=== PATIENT | female | born 1975 | race Caucasian/White ===

== ENCOUNTER 2021-06-05 12:58 | Inpatient (IN) | payer SELFPAY ==
--- NOTE | 2021-06-05 17:46 | Emergency Department Report ---
- General Chief Complaint: Fever Stated Complaint: COUGHING Time Seen by Provider: 06/05/21 17:43 Source: patient Mode of arrival: Ambulatory Limitations: No Limitations - History of Present Illness Initial Comments: The patient was evaluated in the emergency department for symptoms described in the history of present illness. He/she was evaluated in the context of the global COVID-19 pandemic, which necessitated consideration that the patient might be at risk for infection with the virus that causes COVID-19. Institutional protocols and algorithms that pertain to the evaluation of patients at risk for COVID-19 are in a state of rapid change based on information released by regulatory bodies including the CDC and federal and state organizations. These policies and algorithms were followed during the patient's care in the emergency department. Please note that these policies, procedures and recommendations changed on a rapid basis. 45-year-old female presents to the emergency room for 2-week history of fever cough sore throat nasal congestion. She states that the pain is worse in her back when she takes a deep breath. She denies any ear pain no nausea no vomiting. She is unvaccinated for Covid and has not tested. She has been taken Advil but has not taken anything for her cough. MD Complaint: fever, cough, sore throat, nasal congestion, other (sob, mid back pain with deep breath) Onset/Timin -: week(s) Severity scale (0 -10): 8 Quality: sharp, aching Consistency: constant Improves With: nothing Worsens With: deep breaths Associated Symptoms: fever, chills, myalgias, headache, rhinorrhea, nasal congestion, sore throat, cough. denies: abdominal pain, nausea, vomiting, diarrhea Treatments Prior to Arrival: none - Related Data Home Medications Medication Instructions Recorded Confirmed Last Taken No Known Home Medications [No 06/05/21 06/05/21 Unknown Reported Home Medications] Allergies Allergy/AdvReac Type Severity Reaction Status Date / Time No Known Allergies Allergy Verified 06/05/21 17:30 ED Review of Systems ROS: Stated complaint: COUGHING Other details as noted in HPI Comment: All other systems reviewed and negative ENT: throat pain, congestion Respiratory: cough, shortness of breath Gastrointestinal: denies: nausea, vomiting, diarrhea Musculoskeletal: back pain, myalgia Neurological: headache, weakness ED Past Medical Hx - Past Medical History Previous Medical History?: No - Surgical History Past Surgical History?: No - Medications Home Medications: Home Medications Medication Instructions Recorded Confirmed Last Taken Type No Known Home Medications [No 06/05/21 06/05/21 Unknown History Reported Home Medications] ED Physical Exam - General Limitations: No Limitations ED Course Vital Signs 06/05/21 06/05/21 06/05/21 17:31 18:38 18:41 Temperature 98 F 97.6 F 97.6 F Pulse Rate 102 H 73 73 Respiratory 16 16 16 Rate Blood Pressure 113/65 Blood Pressure 126/69 113/65 [Left] O2 Sat by Pulse 100 99 99 Oximetry 06/05/21 19:37 Temperature 100.0 F H Pulse Rate 123 H Respiratory 42 H Rate Blood Pressure Blood Pressure 136/87 [Left] O2 Sat by Pulse 97 Oximetry ED Medical Decision Making - Lab Data Result diagrams: 06/05/21 17:51 06/05/21 17:51 Lab Results 06/05/21 06/05/21 06/05/21 Range/Units 17:51 17:51 17:51 WBC 6.4 (4.5-11.0) K/mm3 RBC 4.26 (3.65-5.03) M/mm3 Hgb 6.9 L (10.1-14.3) gm/dl Hct 24.6 L (30.3-42.9) % MCV 58 L (79-97) fl MCH 16 L (28-32) pg MCHC 28 L (30-34) % RDW 19.8 H (13.2-15.2) % Plt Count 273 (140-440) K/mm3 Lymph % (Auto) 13.6 (13.4-35.0) % [place] % (Auto) 5.5 (0.0-7.3) % Eos % (Auto) 0.0 (0.0-4.3) % Baso % (Auto) 0.3 (0.0-1.8) % Lymph # (Auto) 0.9 L (1.2-5.4) K/mm3 [place] # (Auto) 0.3 (0.0-0.8) K/mm3 Eos # (Auto) 0.0 (0.0-0.4) K/mm3 Baso # (Auto) 0.0 (0.0-0.1) K/mm3 Seg Neutrophils % 80.6 H (40.0-70.0) % Seg Neutrophils # 5.1 (1.8-7.7) K/mm3 D-Dimer 187.64 (0-234) ng/mlDDU Sodium 138 (137-145) mmol/L Potassium 4.0 (3.6-5.0) mmol/L Chloride 102.8 (98-107) mmol/L Carbon Dioxide 20 L (22-30) mmol/L Anion Gap 19 mmol/L BUN 8 (7-17) mg/dL Creatinine 0.5 L (0.6-1.2) mg/dL Estimated GFR > 60 ml/min BUN/Creatinine Ratio 16 % Glucose 170 H (65-100) mg/dL Calcium 8.9 (8.4-10.2) mg/dL Total Bilirubin 0.40 (0.1-1.2) mg/dL AST 56 H (5-40) units/L ALT 63 H (7-56) units/L Alkaline Phosphatase 79 (35-129) units/L Total Protein 7.9 (6.3-8.2) g/dL Albumin 3.8 L (3.9-5) g/dL Albumin/Globulin Ratio 0.9 % HCG, Quant (0-4) mIU/mL 06/05/21 Range/Units 17:51 WBC (4.5-11.0) K/mm3 RBC (3.65-5.03) M/mm3 Hgb (10.1-14.3) gm/dl Hct (30.3-42.9) % MCV (79-97) fl MCH (28-32) pg MCHC (30-34) % RDW (13.2-15.2) % Plt Count (140-440) K/mm3 Lymph % (Auto) (13.4-35.0) % [place] % (Auto) (0.0-7.3) % Eos % (Auto) (0.0-4.3) % Baso % (Auto) (0.0-1.8) % Lymph # (Auto) (1.2-5.4) K/mm3 [place] # (Auto) (0.0-0.8) K/mm3 Eos # (Auto) (0.0-0.4) K/mm3 Baso # (Auto) (0.0-0.1) K/mm3 Seg Neutrophils % (40.0-70.0) % Seg Neutrophils # (1.8-7.7) K/mm3 D-Dimer (0-234) ng/mlDDU Sodium (137-145) mmol/L Potassium (3.6-5.0) mmol/L Chloride (98-107) mmol/L Carbon Dioxide (22-30) mmol/L Anion Gap mmol/L BUN (7-17) mg/dL Creatinine (0.6-1.2) mg/dL Estimated GFR ml/min BUN/Creatinine Ratio % Glucose (65-100) mg/dL Calcium (8.4-10.2) mg/dL Total Bilirubin (0.1-1.2) mg/dL AST (5-40) units/L ALT (7-56) units/L Alkaline Phosphatase (35-129) units/L Total Protein (6.3-8.2) g/dL Albumin (3.9-5) g/dL Albumin/Globulin Ratio % HCG, Quant < 2 (0-4) mIU/mL - Radiology Data Radiology results: report reviewed [facility] [address] [place] [address] XRay Report Signed Patient: LISSETTE CORBETT MR#: [id number] : 1975 Acct:[id number] Age/Sex: 45 / F ADM Date: 06/05/21 Loc: ED Attending Dr: Ordering Physician: BERNICE OLIVEROS Date of Service: 06/05/21 Procedure(s): XR chest routine 2V Accession Number(s): [id number] cc: BERNICE OLIVEROS Fluoro Time In Minutes: CHEST 2 VIEWS INDICATION / CLINICAL INFORMATION: sob,cough and rales. COMPARISON: None available. FINDINGS: SUPPORT DEVICES: None. HEART / MEDIASTINUM: No significant abnormality. LUNGS / PLEURA: Diffuse bilateral pulmonary opacities No pneumothorax. ADDITIONAL FINDINGS: No significant additional findings. IMPRESSION: 1. Diffuse bilateral pulmonary opacities Signer Name: Harry Bentley MD Signed: 06/05/2021 7:01 PM Workstation Name: [id number] Transcribed By: CW Dictated By: TALIA BENTLEY MD Electronically Authenticated By: TALIA BENTLEY MD Signed Date/Time: 06/05/211900 DD/ 00 TD/TT: Print Can - Medical Decision Making 45-year-old female presents to the emergency room for 2-week history of fever cough sore throat nasal congestion. She states that the pain is worse in her back when she takes a deep breath. She denies any ear pain no nausea no v omiting. She is unvaccinated for Covid and has not tested. She has been taken Advil but has not taken anything for her cough. CBC CMP D-dimer chest x-ray hCG Chest x-ray shows bibasilar pneumonia. Labs are concerning for Covid as well. Discussed case with Dr. Balderas states that he will get patient admitted. Patient was given acetaminophen for pain. She was also given IV fluids and dexamethasone IV. The patient's care has been transferred to and accepted by[ Andrey }. We discussed: The patient's chief complaints; labs and imaging that have been completed and those that are still pending; any treatment provided and the patient's response to treatment; any significant change in condition; the treatment plan prior to the transfer of care. The accepting provider will follow up on all pending labs and imaging and make any necessary changes to the current impression and/or treatment plan. The accepting physician/midlevel is now responsible for the patient's care and final disposition. Critical care attestation.: If time is entered above; I have spent that time in minutes in the direct care of this critically ill patient, excluding procedure time. ED Disposition Condition: Stable
[2021-06-05 18:11] LABS: Basophils % (Auto) 0.3 % (0.0-1.8); Lymphocytes # (Auto) 0.9 K/mm3 (1.2-5.4); Lymphocytes % (Auto) 13.6 % (13.4-35.0); Mean Corpuscular HGB Conc 28 % (30-34); Monocytes # (Auto) 0.3 K/mm3 (0.0-0.8); Monocytes % (Auto) 5.5 % (0.0-7.3); Platelet Count 273 K/mm3 (140-440); Red Blood Count 4.26 M/mm3 (3.65-5.03); Red Cell Distribution Width 19.8 % (13.2-15.2)
[2021-06-05 18:23] LABS: Hematocrit 24.6 % (30.3-42.9); Hemoglobin 6.9 gm/dl (10.1-14.3); Mean Corpuscular Volume 58 fl (79-97)
[2021-06-05 18:31] LABS: Alanine Aminotransferase 63 units/L (7-56); Albumin 3.8 g/dL (3.9-5); Blood Urea Nitrogen 8 mg/dL (7-17); Calcium 8.9 mg/dL (8.4-10.2); Hemolysis Index 0
[2021-06-05 18:38] LABS: BUN/Creatinine Ratio 16
--- NOTE | 2021-06-05 19:05 | XRay Report ---
CHEST 2 VIEWS INDICATION / CLINICAL INFORMATION: sob,cough and rales. COMPARISON: None available. FINDINGS: SUPPORT DEVICES: None. HEART / MEDIASTINUM: No significant abnormality. LUNGS / PLEURA: Diffuse bilateral pulmonary opacities No pneumothorax. ADDITIONAL FINDINGS: No significant additional findings. IMPRESSION: 1. Diffuse bilateral pulmonary opacities Signer Name: Harry Bentley MD Signed: 06/05/2021 7:01 PM Workstation Name: [id number]
[2021-06-05] MEDS ORDERED: ACETAMINOPHEN W/CODEINE 300-30 MG TAB PO ONE (19:31)
[2021-06-05] MEDS ORDERED: SODIUM CHLORIDE 0.9% 1000 ML 1,000 ML IV ONE (19:50)
[2021-06-05] MEDS ORDERED: dexAMETHasone 20 MG/5 ML VIAL IV ONE (19:50)
--- NOTE | 2021-06-05 21:52 | Emergency Department Report ---
ED General Adult HPI - General Chief complaint: Fever Stated complaint: COUGHING Time Seen by Provider: 06/05/21 17:43 Source: patient Mode of arrival: Ambulatory Limitations: No Limitations - History of Present Illness Initial comments: fever cough and azucena -: week(s) Radiation: non-radiation Severity scale (0 -10): 8 - Related Data Home Medications Medication Instructions Recorded Confirmed Last Taken No Known Home Medications [No 06/05/21 06/05/21 Unknown Reported Home Medications] Allergies Allergy/AdvReac Type Severity Reaction Status Date / Time No Known Allergies Allergy Verified 06/05/21 17:30 ED Review of Systems ROS: Stated complaint: COUGHING Other details as noted in HPI Constitutional: denies: chills, fever Eyes: denies: eye pain, eye discharge, vision change ENT: throat pain, congestion Respiratory: cough, shortness of breath Cardiovascular: denies: chest pain, palpitations Endocrine: no symptoms reported Gastrointestinal: denies: nausea, vomiting, diarrhea Genitourinary: denies: urgency, dysuria, discharge Musculoskeletal: back pain, myalgia Skin: denies: rash, lesions Neurological: headache, weakness Psychiatric: denies: anxiety, depression Hematological/Lymphatic: denies: easy bleeding, easy bruising ED Past Medical Hx - Past Medical History Previous Medical History?: No - Surgical History Past Surgical History?: No - Social History Smoking Status: Never Smoker Substance Use Type: None - Medications Home Medications: Home Medications Medication Instructions Recorded Confirmed Last Taken Type No Known Home Medications [No 06/05/21 06/05/21 Unknown History Reported Home Medications] ED Physical Exam - General Limitations: No Limitations - Head Head exam: Present: atraumatic, normocephalic - Eye Eye exam: Present: normal appearance - ENT ENT exam: Present: mucous membranes moist - Neck Neck exam: Present: normal inspection - Respiratory Respiratory exam: Present: normal lung sounds bilaterally, wheezes. Absent: respiratory distress - Cardiovascular Cardiovascular Exam: Present: regular rate, normal rhythm. Absent: systolic murmur, diastolic murmur, rubs, gallop - GI/Abdominal GI/Abdominal exam: Present: soft, normal bowel sounds - Extremities Exam Extremities exam: Present: normal inspection - Back Exam Back exam: Present: normal inspection - Neurological Exam Neurological exam: Present: alert, oriented X3 - Psychiatric Psychiatric exam: Present: normal affect, normal mood - Skin Skin exam: Present: warm, dry, intact, normal color. Absent: rash ED Course Vital Signs 06/05/21 06/05/21 06/05/21 17:31 18:38 18:41 Temperature 98 F 97.6 F 97.6 F Pulse Rate 102 H 73 73 Respiratory 16 16 16 Rate Blood Pressure 113/65 Blood Pressure 126/69 113/65 [Left] O2 Sat by Pulse 100 99 99 Oximetry 06/05/21 19:37 Temperature 100.0 F H Pulse Rate 123 H Respiratory 42 H Rate Blood Pressure Blood Pressure 136/87 [Left] O2 Sat by Pulse 97 Oximetry ED Medical Decision Making - Lab Data Result diagrams: 06/05/21 17:51 06/05/21 17:51 Critical care attestation.: If time is entered above; I have spent that time in minutes in the direct care of this critically ill patient, excluding procedure time. ED Disposition Clinical Impression: Pneumonia due to COVID-19 virus Disposition: 09 ADMITTED INPATIENT Is pt being admited?: Yes Does the pt Need Aspirin: No Condition: Stable Instructions: Bacterial Pneumonia (ED) Referrals: PRIMARY CARE, [Primary Care Provider] - 3-5 Days
[2021-06-05] MEDS ORDERED: HYDROmorphone 1 MG/1 ML INJ IV PRN (21:58)
[2021-06-05] MEDS ORDERED: MORPHINE 2 MG/1 ML INJ IV PRN (21:58)
[2021-06-05] MEDS ORDERED: ACETAMINOPHEN 325 MG TAB PO PRN (21:58)
[2021-06-05] MEDS ORDERED: ONDANSETRON 4 MG/2 ML INJ IV PRN (21:58)
[2021-06-05] MEDS ORDERED: ALBUTEROL 2.5 MG/3 ML NEBU IH PRN (21:58)
[2021-06-05] MEDS ORDERED: AZITHROMYCIN/NS 500 MG/250 ML 500 MG/250 ML BAG IV SCH (22:00)
--- NOTE | 2021-06-05 22:05 | History and Physical Report ---
History of Present Illness Date of examination: 06/05/21 Date of admission: 06/05/21 Chief complaint: Fever Shortness of breath History of present illness: 45-year-old female presents to the emergency room for 2-week history of fever cough sore throat nasal congestion. She states that the pain is worse in her back when she takes a deep breath. She denies any ear pain no nausea no vomiting. She is unvaccinated for Covid and has not tested. She has been taken Advil but has not taken anything for her cough. In the emergency room patient chest x-ray shows diffuse bilateral pulmonary opacities. Patient also tachypneic. We are going to admit the patient we will put the patient on Rocephin and Zithromax and dexamethasone will consult infectious disease for evaluation Medications and Allergies Allergies Allergy/AdvReac Type Severity Reaction Status Date / Time No Known Allergies Allergy Verified 06/05/21 17:30 Home Medications Medication Instructions Recorded Confirmed Last Taken Type No Known Home Medications [No 06/05/21 06/05/21 Unknown History Reported Home Medications] Review of Systems All systems: negative Constitutional: fever, chills Cardiovascular: shortness of breath Respiratory: cough, shortness of breath, congestion Exam - Constitutional Vitals: Temp Pulse Resp BP Pulse Ox 99.6 F 99 H 29 H 115/70 93 06/05/21 21:57 06/05/21 21:57 06/05/21 21:57 06/05/21 21:57 06/05/21 21:57 General appearance: Present: no acute distress, well-nourished - EENT Eyes: Present: PERRL ENT: hearing intact, clear oral mucosa - Neck Neck: Present: supple, normal ROM - Respiratory Respiratory effort: normal Respiratory: bilateral: CTA - Cardiovascular Heart Sounds: Present: S1 & S2. Absent: rub, click - Extremities Extremities: pulses symmetrical, No edema Peripheral Pulses: within normal limits - Abdominal General gastrointestinal: Present: soft, non-tender, non-distended, normal bowel sounds Female genitourinary: Present: normal - Integumentary Integumentary: Present: clear, warm, dry - Musculoskeletal Musculoskeletal: gait normal, strength equal bilaterally - Psychiatric Psychiatric: appropriate mood/affect, intact judgment & insight - Neurologic Neurologic: CNII-XII intact, moves all extremities Results - Labs CBC & Chem 7: 06/05/21 17:51 06/05/21 17:51 Labs: Laboratory Last Values WBC 6.4 K/mm3 (4.5-11.0) 06/05/21 17:51 RBC 4.26 M/mm3 (3.65-5.03) 06/05/21 17:51 Hgb 6.9 gm/dl (10.1-14.3) L 06/05/21 17:51 Hct 24.6 % (30.3-42.9) L 06/05/21 17:51 MCV 58 fl (79-97) L 06/05/21 17:51 MCH 16 pg (28-32) L 06/05/21 17:51 MCHC 28 % (30-34) L 06/05/21 17:51 RDW 19.8 % (13.2-15.2) H 06/05/21 17:51 Plt Count 273 K/mm3 (140-440) 06/05/21 17:51 Lymph % (Auto) 13.6 % (13.4-35.0) 06/05/21 17:51 [place] % (Auto) 5.5 % (0.0-7.3) 06/05/21 17:51 Eos % (Auto) 0.0 % (0.0-4.3) 06/05/21 17:51 Baso % (Auto) 0.3 % (0.0-1.8) 06/05/21 17:51 Lymph # (Auto) 0.9 K/mm3 (1.2-5.4) L 06/05/21 17:51 [place] # (Auto) 0.3 K/mm3 (0.0-0.8) 06/05/21 17:51 Eos # (Auto) 0.0 K/mm3 (0.0-0.4) 06/05/21 17:51 Baso # (Auto) 0.0 K/mm3 (0.0-0.1) 06/05/21 17:51 Seg Neutrophils % 80.6 % (40.0-70.0) H 06/05/21 17:51 Seg Neutrophils # 5.1 K/mm3 (1.8-7.7) 06/05/21 17:51 D-Dimer 187.64 ng/mlDDU (0-234) 06/05/21 17:51 Sodium 138 mmol/L (137-145) 06/05/21 17:51 Potassium 4.0 mmol/L (3.6-5.0) 06/05/21 17:51 Chloride 102.8 mmol/L (98-107) 06/05/21 17:51 Carbon Dioxide 20 mmol/L (22-30) L 06/05/21 17:51 Anion Gap 19 mmol/L 06/05/21 17:51 BUN 8 mg/dL (7-17) 06/05/21 17:51 Creatinine 0.5 mg/dL (0.6-1.2) L 06/05/21 17:51 Estimated GFR > 60 ml/min 06/05/21 17:51 BUN/Creatinine Ratio 16 % 06/05/21 17:51 Glucose 170 mg/dL (65-100) H 06/05/21 17:51 Calcium 8.9 mg/dL (8.4-10.2) 06/05/21 17:51 Total Bilirubin 0.40 mg/dL (0.1-1.2) 06/05/21 17:51 AST 56 units/L (5-40) H 06/05/21 17:51 ALT 63 units/L (7-56) H 06/05/21 17:51 Alkaline Phosphatase 79 units/L (35-129) 06/05/21 17:51 Total Protein 7.9 g/dL (6.3-8.2) 06/05/21 17:51 Albumin 3.8 g/dL (3.9-5) L 06/05/21 17:51 Albumin/Globulin Ratio 0.9 % 06/05/21 17:51 HCG, Quant < 2 mIU/mL (0-4) 06/05/21 17:51 - Imaging and Cardiology Chest x-ray: report reviewed Assessment and Plan VTE prophylaxis?: Chemical Plan of care discussed with patient/family: Yes - Patient Problems (1) Pneumonia due to COVID-19 virus Current Visit: Yes Status: Acute Plan to address problem: Admit the patient to the [facility]. Oxygen by nasal cannula rn office pulmonate. DuoNeb by nebulizer every 4 hours. Rocephin 2 g IV daily. Zithromax 500 mg IV daily. Dexamethasone 6 mg IV daily. We will do the blood cultures sputum cultu re. We will send the Covid PCR. Follow Covid inflammatory marker. consult infectious disease. Consult pulmonary if needed (2) Dyspnea Current Visit: Yes Status: Acute Plan to address problem: Oxygen by nasal cannula rn office pulmonate. DuoNeb by nebulizer every 4 hours. (3) Fever Current Visit: Yes Status: Acute Plan to address problem: Tylenol 650 mg p.o. every 6 hours as needed. Rocephin 2 g IV daily. Zithromax 500 mg IV daily. We do the blood culture and sputum culture. Recheck CBC BMP in the morning (4) DVT prophylaxis Current Visit: Yes Status: Acute Plan to address problem: Heparin 5000 units subcu every 8 hours for DVT prophylaxis. Pepcid 20 mg p.o. twice daily for GI prophylaxis. Patient is a full code
[2021-06-05] MEDS: cefTRIAXone/NS 2 GM/100 ML 2 GM/100 ML BAG IV SCH (23:00)
[2021-06-05] MEDS: HEPARIN 5,000 UNIT/1 ML VIAL SUB-Q SCH (23:00)
[2021-06-05] MEDS: FAMOTIDINE 20 MG TAB PO SCH (23:00)
[2021-06-05] MEDS ORDERED: ALPRAZolam 0.25 MG TAB PO ONE (23:10)
[2021-06-06] MEDS: IPRATROPIUM/ALBUTEROL SULFATE 3 ML AMPUL.NEB IH SCH ×3 (02:00→17:16)
[2021-06-06] MEDS: HEPARIN 5,000 UNIT/1 ML VIAL SUB-Q SCH ×2 (06:00→17:50)
[2021-06-06 06:34] LABS: Basophils % (Auto) 0.2 % (0.0-1.8); Hematocrit 23.3 % (30.3-42.9); Hemoglobin 6.6 gm/dl (10.1-14.3); Lymphocytes # (Auto) 0.7 K/mm3 (1.2-5.4); Lymphocytes % (Auto) 13.2 % (13.4-35.0); Mean Corpuscular HGB Conc 28 % (30-34); Monocytes # (Auto) 0.2 K/mm3 (0.0-0.8); Platelet Count 257 K/mm3 (140-440); Red Blood Count 4.04 M/mm3 (3.65-5.03); Red Cell Distribution Width 19.9 % (13.2-15.2)
[2021-06-06 06:35] LABS: Blood Urea Nitrogen 9 mg/dL (7-17); Calcium 8.3 mg/dL (8.4-10.2); Hemolysis Index 0; Mean Corpuscular Volume 58 fl (79-97)
[2021-06-06 06:39] LABS: BUN/Creatinine Ratio 18
[2021-06-06] MEDS ORDERED: CALCIUM CHLORIDE 1,000 MG in SODIUM CHLORIDE 0.9% 100 ML IV NR (08:23)
[2021-06-06] MEDS ORDERED: dexAMETHasone 4 MG/ML VIAL IV SCH (10:00)
[2021-06-06] MEDS ORDERED: CALCIUM GLUCONATE 1,000 MG in SODIUM CHLORIDE 0.9% 100 ML IV ONE (10:00)
[2021-06-06] MEDS: FAMOTIDINE 20 MG TAB PO SCH (11:48)
[2021-06-06] MEDS: DEXAMETHASONE 4 MG TAB PO SCH (11:48)
--- NOTE | 2021-06-06 14:57 | Progress Note ---
Assessment and Plan Assessment and plan: Patient is a 45-year-old female with no known past medical history who presented with 2 weeks of fevers, cough, sore throat, and nasal congestion in addition to having pleuritic chest pain with deep breaths. The patient is currently unvaccinated for Covid and has not been tested. The patient is being managed for acute hypoxic respiratory failure in the setting of possible Covid pneumonia. #Possible community-acquired pneumonia #Possible COVID-19 pneumonia #Acute hypoxic respiratory failure -Patient unvaccinated for COVID-19. Etiology includes community-acquired pneumonia, COVID-19 pneumonia, influenza, upper respiratory infection, etc. -Home oxygen requirement: None -Current oxygen requirement: 9 L nasal cannula -Pending coronavirus PCR and influenza a/B PCR -Continue Rocephin 2 g IV daily and azithromycin 500 mg daily for possible community-acquired pneumonia. Continue dexamethasone 6 mg daily. Can discontinue antibiotics if coronavirus PCR was found to be positive. -Infectious disease consulted; pending recs -Wean oxygen as tolerated. Ordered incentive spirometer. Continue contact and droplet precautions. -Continue to monitor Hypocalcemia -Calcium 8.3. Repleted. #Advanced care planning -Disease education conducted, care plan discussed, diagnoses discussed, prognosis discussed, and patient acknowledges understanding with care plan -Time: +30 min Disposition Plan: Continue medical management Total Time Spent with Patient (Minutes): 45 minutes History Interval history: No acute events overnight. Hospitalist Physical - Constitutional Vitals: Temp Pulse Resp BP Pulse Ox 98.9 F 86 18 106/61 99 06/05/21 23:00 06/06/21 06:00 06/06/21 06:00 06/06/21 06:00 06/06/21 06:00 General appearance: Present: no acute distress, well-nourished - EENT Eyes: Present: PERRL, EOM intact ENT: hearing intact, clear oral mucosa, dentition normal - Neck Neck: Present: supple, normal ROM - Respiratory Respiratory effort: normal Respiratory: bilateral: diminished (On 9 L nasal cannula) - Cardiovascular Rhythm: regular Heart Sounds: Present: S1 & S2 - Extremities Extremities: no ischemia, pulses intact, pulses symmetrical, No edema, normal temperature, normal color, Full ROM Peripheral Pulses: within normal limits - Abdominal General gastrointestinal: soft, non-tender, non-distended, normal bowel sounds - Integumentary Integumentary: Present: clear, warm, dry - Psychiatric Psychiatric: appropriate mood/affect, intact judgment & insight, memory intact, cooperative - Neurologic Neurologic: CNII-XII intact, moves all extremities - Allied Health Allied health notes reviewed: nursing Results - Labs CBC & Chem 7: 06/06/21 05:32 06/06/21 05:32 Labs: Laboratory Last Values WBC 5.0 K/mm3 (4.5-11.0) 06/06/21 05:32 RBC 4.04 M/mm3 (3.65-5.03) 06/06/21 05:32 Hgb 6.6 gm/dl (10.1-14.3) L 06/06/21 05:32 Hct 23.3 % (30.3-42.9) L 06/06/21 05:32 MCV 58 fl (79-97) L 06/06/21 05:32 MCH 16 pg (28-32) L 06/06/21 05:32 MCHC 28 % (30-34) L 06/06/21 05:32 RDW 19.9 % (13.2-15.2) H 06/06/21 05:32 Plt Count 257 K/mm3 (140-440) 06/06/21 05:32 Lymph % (Auto) 13.2 % (13.4-35.0) L 06/06/21 05:32 [place] % (Auto) 3.0 % (0.0-7.3) 06/06/21 05:32 Eos % (Auto) 0.0 % (0.0-4.3) 06/06/21 05:32 Baso % (Auto) 0.2 % (0.0-1.8) 06/06/21 05:32 Lymph # (Auto) 0.7 K/mm3 (1.2-5.4) L 06/06/21 05:32 [place] # (Auto) 0.2 K/mm3 (0.0-0.8) 06/06/21 05:32 Eos # (Auto) 0.0 K/mm3 (0.0-0.4) 06/06/21 05:32 Baso # (Auto) 0.0 K/mm3 (0.0-0.1) 06/06/21 05:32 Seg Neutrophils % 83.6 % (40.0-70.0) H 06/06/21 05:32 Seg Neutrophils # 4.2 K/mm3 (1.8-7.7) 06/06/21 05:32 D-Dimer 187.64 ng/mlDDU (0-234) 06/05/21 17:51 Sodium 140 mmol/L (137-145) 06/06/21 05:32 Potassium 4.1 mmol/L (3.6-5.0) 06/06/21 05:32 Chloride 106.8 mmol/L (98-107) 06/06/21 05:32 Carbon Dioxide 20 mmol/L (22-30) L 06/06/21 05:32 Anion Gap 17 mmol/L 06/06/21 05:32 BUN 9 mg/dL (7-17) 06/06/21 05:32 Creatinine 0.5 mg/dL (0.6-1.2) L 06/06/21 05:32 Estimated GFR > 60 ml/min 06/06/21 05:32 BUN/Creatinine Ratio 18 % 06/06/21 05:32 Glucose 213 mg/dL (65-100) H 06/06/21 05:32 Calcium 8.3 mg/dL (8.4-10.2) L 06/06/21 05:32 Total Bilirubin 0.40 mg/dL (0.1-1.2) 06/05/21 17:51 AST 56 units/L (5-40) H 06/05/21 17:51 ALT 63 units/L (7-56) H 06/05/21 17:51 Alkaline Phosphatase 79 units/L (35-129) 06/05/21 17:51 Total Protein 7.9 g/dL (6.3-8.2) 06/05/21 17:51 Albumin 3.8 g/dL (3.9-5) L 06/05/21 17:51 Albumin/Globulin Ratio 0.9 % 06/05/21 17:51 HCG, Quant < 2 mIU/mL (0-4) 06/05/21 17:51 Active Medications - Current Medications Current Medications: Generic Name Dose Route Start Last Admin Trade Name Freq PRN Reason Stop Dose Admin Acetaminophen 650 mg 06/05/21 21:58 Acetaminophen 325 Mg Tab PO Q4H PRN Pain MILD(1-3)/Fever >100.5/TRAN Albuterol 2.5 mg 06/05/21 21:58 Albuterol 2.5 Mg/3 Ml Nebu IH Q4HRT PRN Shortness Of Breath Albuterol/Ipratropium 1 ampul 06/06/21 02:00 06/06/21 11:48 Ipratropium/Albuterol Sulfate 3 Ml Ampul.Neb IH 1 ampul Q6HRT VERENICE Administration Azithromycin 500 mg 06/06/21 23:00 Azithromycin 250 Mg Tab PO 06/07/21 10:01 QDAY VERENICE Protocol Dexamethasone 8 mg 06/06/21 10:00 06/06/21 11:48 Dexamethasone 4 Mg Tab PO 06/10/21 10:01 8 mg Q12HR VERENICE Administration Famotidine 20 mg 06/05/21 22:00 06/06/21 11:48 Famotidine 20 Mg Tab PO 20 mg BID VERENICE Administration Heparin Sodium (Porcine) 5,000 unit 06/05/21 22:00 06/06/21 06:00 Heparin 5,000 Unit/1 Ml Vial SUB-Q 5,000 unit Q8HR VERENICE Administration Hydromorphone HCl 0.5 mg 06/05/21 21:58 Hydromorphone 1 Mg/1 Ml Inj IV Q3H PRN Pain , Severe (7-10) Ceftriaxone Sodium 2 gm in 100 mls @ 200 mls/hr 06/05/21 22:00 06/05/21 23:30 Rocephin/Ns 2 Gm/100 Ml IV Infused Q24H VERENICE Infusion Protocol Morphine Sulfate 2 mg 06/05/21 21:58 Morphine 2 Mg/1 Ml Inj IV Q4H PRN Pain, Moderate (4-6) Ondansetron HCl 4 mg 06/05/21 21:58 Ondansetron 4 Mg/2 Ml Inj IV Q8H PRN Nausea And Vomiting Sodium Chloride 10 ml 06/05/21 22:00 06/06/21 11:43 Sodium Chloride 0.9% 10 Ml Flush Syringe IV 10 ml BID VERENICE Administration Sodium Chloride 10 ml 06/05/21 21:58 Sodium Chloride 0.9% 10 Ml Flush Syringe IV PRN PRN LINE FLUSH
[2021-06-07] MEDS: DEXAMETHASONE 4 MG TAB PO SCH ×3 (00:15→22:29)
[2021-06-07] MEDS: FAMOTIDINE 20 MG TAB PO SCH ×3 (00:15→22:29)
[2021-06-07] MEDS: HEPARIN 5,000 UNIT/1 ML VIAL SUB-Q SCH ×4 (00:16→22:29)
[2021-06-07] MEDS: AZITHROMYCIN 250 MG TAB PO SCH ×2 (00:20→09:57)
[2021-06-07] MEDS: cefTRIAXone/NS 2 GM/100 ML 2 GM/100 ML BAG IV SCH ×2 (00:21→22:29)
[2021-06-07] MEDS: IPRATROPIUM/ALBUTEROL SULFATE 3 ML AMPUL.NEB IH SCH ×5 (01:25→21:40)
[2021-06-07] MEDS: guaiFENesin 100 MG/5 ML ORAL LIQD PO PRN (01:34)
[2021-06-07 07:54] LABS: Basophils % (Auto) 0.2 % (0.0-1.8); Lymphocytes # (Auto) 0.7 K/mm3 (1.2-5.4); Lymphocytes % (Auto) 9.4 % (13.4-35.0); Mean Corpuscular HGB Conc 28 % (30-34); Monocytes # (Auto) 0.4 K/mm3 (0.0-0.8); Monocytes % (Auto) 5.9 % (0.0-7.3); Platelet Count 338 K/mm3 (140-440)
[2021-06-07 07:55] LABS: Hemoglobin 6.6 gm/dl (10.1-14.3); Mean Corpuscular Volume 59 fl (79-97); Red Cell Distribution Width 20.5 % (13.2-15.2)
[2021-06-07] MEDS ORDERED: SODIUM CHLORIDE 0.9% 500 ML 500 ML IV NR (08:17)
[2021-06-07 08:19] LABS: Blood Urea Nitrogen 14 mg/dL (7-17); Calcium 9.2 mg/dL (8.4-10.2); Hemolysis Index 0
[2021-06-07 08:22] LABS: BUN/Creatinine Ratio 28
--- NOTE | 2021-06-07 11:27 | Progress Note ---
Assessment and Plan Assessment and plan: Patient is a 45-year-old female with no known past medical history who presented with 2 weeks of fevers, cough, sore throat, and nasal congestion in addition to having pleuritic chest pain with deep breaths. The patient is currently unvaccinated for Covid and has not been tested. The patient is being managed for acute hypoxic respiratory failure in the setting of possible Covid pneumonia. #Possible community-acquired pneumonia #Possible COVID-19 pneumonia #Acute hypoxic respiratory failure -Patient unvaccinated for COVID-19. Etiology includes community-acquired pneumonia, COVID-19 pneumonia, influenza, upper respiratory infection, etc. -Home oxygen requirement: None -Current oxygen requirement: 9 L nasal cannula -Pending coronavirus PCR and influenza a/B PCR. Unsure as to why coronavirus PCR was not obtained yesterday. Reordered for today. -Continue Rocephin 2 g IV daily and azithromycin 500 mg daily for possible community-acquired pneumonia. Continue dexamethasone 6 mg daily. Can discontinue antibiotics if coronavirus PCR was found to be positive. -Infectious disease consulted; pending recs -Wean oxygen as tolerated. Ordered incentive spirometer. Continue contact and droplet precautions. -Continue to monitor #Microcytic anemia -Anemia 6.6, MCV 59 -Ordering iron studies -Transfusing 1 unit packed RBC Hypocalcemia-resolved -Calcium 8.3. Repleted. #Advanced care planning -Disease education conducted, care plan discussed, diagnoses discussed, prognosis discussed, and patient acknowledges understanding with care plan -Time: +30 min Disposition Plan: Continue medical management Total Time Spent with Patient (Minutes): 45 minutes History Interval history: No acute events overnight. Hospitalist Physical - Constitutional Vitals: Temp Pulse Resp BP Pulse Ox 99.2 F 78 21 103/52 95 06/06/21 20:54 06/06/21 18:00 06/06/21 23:00 06/06/21 18:00 06/06/21 23:00 General appearance: Present: no acute distress, well-nourished - EENT Eyes: Present: PERRL, EOM intact ENT: hearing intact, clear oral mucosa, dentition normal - Neck Neck: Present: supple, normal ROM - Respiratory Respiratory effort: normal Respiratory: negative: diminished (On nasal cannula) - Cardiovascular Rhythm: regular Heart Sounds: Present: S1 & S2 - Extremities Extremities: no ischemia, pulses intact, pulses symmetrical, No edema, normal temperature, normal color, Full ROM Peripheral Pulses: within normal limits - Abdominal General gastrointestinal: soft, non-tender, non-distended, normal bowel sounds - Integumentary Integumentary: Present: clear, warm, dry - Psychiatric Psychiatric: appropriate mood/affect, intact judgment & insight, memory intact, cooperative - Neurologic Neurologic: CNII-XII intact, moves all extremities - Allied Health Allied health notes reviewed: nursing Results - Labs CBC & Chem 7: 06/07/21 06:59 06/07/21 06:59 Labs: Laboratory Last Values WBC 7.3 K/mm3 (4.5-11.0) 06/07/21 06:59 RBC 4.10 M/mm3 (3.65-5.03) 06/07/21 06:59 Hgb 6.6 gm/dl (10.1-14.3) L 06/07/21 06:59 Hct 24.0 % (30.3-42.9) L 06/07/21 06:59 MCV 59 fl (79-97) L 06/07/21 06:59 MCH 16 pg (28-32) L 06/07/21 06:59 MCHC 28 % (30-34) L 06/07/21 06:59 RDW 20.5 % (13.2-15.2) H 06/07/21 06:59 Plt Count 338 K/mm3 (140-440) 06/07/21 06:59 Lymph % (Auto) 9.4 % (13.4-35.0) L 06/07/21 06:59 [place] % (Auto) 5.9 % (0.0-7.3) 06/07/21 06:59 Eos % (Auto) 0.0 % (0.0-4.3) 06/07/21 06:59 Baso % (Auto) 0.2 % (0.0-1.8) 06/07/21 06:59 Lymph # (Auto) 0.7 K/mm3 (1.2-5.4) L 06/07/21 06:59 [place] # (Auto) 0.4 K/mm3 (0.0-0.8) 06/07/21 06:59 Eos # (Auto) 0.0 K/mm3 (0.0-0.4) 06/07/21 06:59 Baso # (Auto) 0.0 K/mm3 (0.0-0.1) 06/07/21 06:59 Seg Neutrophils % 84.5 % (40.0-70.0) H 06/07/21 06:59 Seg Neutrophils # 6.2 K/mm3 (1.8-7.7) 06/07/21 06:59 D-Dimer 205.77 ng/mlDDU (0-234) 06/07/21 06:59 Sodium 136 mmol/L (137-145) L 06/07/21 06:59 Potassium 4.1 mmol/L (3.6-5.0) 06/07/21 06:59 Chloride 102.7 mmol/L (98-107) 06/07/21 06:59 Carbon Dioxide 20 mmol/L (22-30) L 06/07/21 06:59 Anion Gap 17 mmol/L 06/07/21 06:59 BUN 14 mg/dL (7-17) 06/07/21 06:59 Creatinine 0.5 mg/dL (0.6-1.2) L 06/07/21 06:59 Estimated GFR > 60 ml/min 06/07/21 06:59 BUN/Creatinine Ratio 28 % 06/07/21 06:59 Glucose 261 mg/dL (65-100) H 06/07/21 06:59 Calcium 9.2 mg/dL (8.4-10.2) 06/07/21 06:59 Ferritin 19.2 ng/mL (10.0-200.0) 06/07/21 06:59 Total Bilirubin 0.40 mg/dL (0.1-1.2) 06/05/21 17:51 AST 56 units/L (5-40) H 06/05/21 17:51 ALT 63 units/L (7-56) H 06/05/21 17:51 Alkaline Phosphatase 79 units/L (35-129) 06/05/21 17:51 Lactate Dehydrogenase 210 units/L (91-180) H 06/07/21 06:59 C-Reactive Protein 3.50 mg/dL (0.00-1.30) H 06/07/21 06:59 Total Protein 7.9 g/dL (6.3-8.2) 06/05/21 17:51 Albumin 3.8 g/dL (3.9-5) L 06/05/21 17:51 Albumin/Globulin Ratio 0.9 % 06/05/21 17:51 HCG, Quant < 2 mIU/mL (0-4) 06/05/21 17:51 Johnson/IV: Voiding Method Toilet Active Medications - Current Medications Current Medications: Generic Name Dose Route Start Last Admin Trade Name Freq PRN Reason Stop Dose Admin Acetaminophen 650 mg 06/05/21 21:58 06/06/21 11:50 Acetaminophen 325 Mg Tab PO 650 mg Q4H PRN Administration Pain MILD(1-3)/Fever >100.5/TRAN Albuterol 2.5 mg 06/05/21 21:58 Albuterol 2.5 Mg/3 Ml Nebu IH Q4HRT PRN Shortness Of Breath Albuterol/Ipratropium 1 ampul 06/06/21 02:00 06/07/21 10:03 Ipratropium/Albuterol Sulfate 3 Ml Ampul.Neb IH 1 ampul Q6HRT VERENICE Administration Dexamethasone 8 mg 06/06/21 10:00 06/07/21 09:57 Dexamethasone 4 Mg Tab PO 06/10/21 10:01 8 mg Q12HR VERENICE Administration Famotidine 20 mg 06/05/21 22:00 06/07/21 09:58 Famotidine 20 Mg Tab PO 20 mg BID VERENICE Administration Guaifenesin 200 mg 06/07/21 01:19 06/07/21 01:34 Guaifenesin 100 Mg/5 Ml Oral Liqd PO 200 mg Q6HR PRN Administration Cough Heparin Sodium (Porcine) 5,000 unit 06/05/21 22:00 06/07/21 06:45 Heparin 5,000 Unit/1 Ml Vial SUB-Q 5,000 unit Q8HR VERENICE Administration Hydromorphone HCl 0.5 mg 06/05/21 21:58 Hydromorphone 1 Mg/1 Ml Inj IV Q3H PRN Pain , Severe (7-10) Ceftriaxone Sodium 2 gm in 100 mls @ 200 mls/hr 06/05/21 22:00 06/07/21 00:21 Rocephin/Ns 2 Gm/100 Ml IV 200 mls/hr Q24H [facility]ICE Administration Protocol Sodium Chloride 500 mls @ 0 mls/hr 06/07/21 08:17 06/07/21 09:57 Nacl 0.9% 500 Ml IV 06/08/21 08:16 50 mls/hr ONCE NR Administration As Directed Morphine Sulfate 2 mg 06/05/21 21:58 Morphine 2 Mg/1 Ml Inj IV Q4H PRN Pain, Moderate (4-6) Ondansetron HCl 4 mg 06/05/21 21:58 Ondansetron 4 Mg/2 Ml Inj IV Q8H PRN Nausea And Vomiting Sodium Chloride 10 ml 06/05/21 22:00 06/07/21 09:58 Sodium Chloride 0.9% 10 Ml Flush Syringe IV 10 ml BID VERENICE Administration Sodium Chloride 10 ml 06/05/21 21:58 Sodium Chloride 0.9% 10 Ml Flush Syringe IV PRN PRN LINE FLUSH
--- NOTE | 2021-06-07 15:33 | Consultation ---
History of Present Illness - Reason for Consult Consult date: 06/07/21 - History of Present Illness 45-year-old female no past medical history presented to hospital complaining of 2 weeks of fevers, cough, sore throat. She notes she has back pain when she takes deep breath. She is unvaccinated against Covid. Afebrile since admission with a white count 7.3. Covid PCR pending. Normal renal function. Elevated laboratory markers. Pending procalcitonin. Currently on ceftriaxone, azithromycin, dexamethasone. Requiring 2 L nasal cannula. Imaging personally reviewed: Chest x-ray: Diffuse bilateral pulmonary opacities. Review of systems: Deferred to reduce to the risk of transmission of COVID-19 Past History Past Medical History: No medical history Past Surgical History: No surgical history Social history: no significant social history Family history: CAD Medications and Allergies Allergies Allergy/AdvReac Type Severity Reaction Status Date / Time No Known Allergies Allergy Verified 06/05/21 17:30 Home Medications Medication Instructions Recorded Confirmed Last Taken Type Acetaminophen [Tylenol] 650 mg PO Q6HR PRN 06/07/21 06/07/21 06/05/21 22:00 History Active Meds: Active Medications Acetaminophen (Acetaminophen 325 Mg Tab) 650 mg PO Q4H PRN PRN Reason: Pain MILD(1-3)/Fever >100.5/TRAN Last Admin: 06/06/21 11:50 Dose: 650 mg Documented by: Albuterol (Albuterol 2.5 Mg/3 Ml Nebu) 2.5 mg IH Q4HRT PRN PRN Reason: Shortness Of Breath Albuterol/Ipratropium (Ipratropium/Albuterol Sulfate 3 Ml Ampul.Neb) 1 ampul IH Q6HRT [facility] Last Admin: 06/07/21 10:03 Dose: 1 ampul Documented by: Dexamethasone (Dexamethasone 4 Mg Tab) 8 mg PO Q12HR [facility] Stop: 06/10/21 10:01 Last Admin: 06/07/21 09:57 Dose: 8 mg Documented by: Famotidine (Famotidine 20 Mg Tab) 20 mg PO BID [facility] Last Admin: 06/07/21 09:58 Dose: 20 mg Documented by: Guaifenesin (Guaifenesin 100 Mg/5 Ml Oral Liqd) 200 mg PO Q6HR PRN PRN Reason: Cough Last Admin: 06/07/21 01:34 Dose: 200 mg Documented by: Heparin Sodium (Porcine) (Heparin 5,000 Unit/1 Ml Vial) 5,000 unit SUB-Q Q8HR [facility] Last Admin: 06/07/21 06:45 Dose: 5,000 unit Documented by: Hydromorphone HCl (Hydromorphone 1 Mg/1 Ml Inj) 0.5 mg IV Q3H PRN PRN Reason: Pain , Severe (7-10) Ceftriaxone Sodium (Rocephin/Ns 2 Gm/100 Ml) 2 gm in 100 mls @ 200 mls/hr IV Q24H [facility]ENICE; Protocol Last Admin: 06/07/21 00:21 Dose: 200 mls/hr Documented by: Sodium Chloride (Nacl 0.9% 500 Ml) 500 mls @ 0 mls/hr IV ONCE NR Stop: 06/08/21 08:16 Last Admin: 06/07/21 09:57 Dose: 50 mls/hr Documented by: Morphine Sulfate (Morphine 2 Mg/1 Ml Inj) 2 mg IV Q4H PRN PRN Reason: Pain, Moderate (4-6) Ondansetron HCl (Ondansetron 4 Mg/2 Ml Inj) 4 mg IV Q8H PRN PRN Reason: Nausea And Vomiting Sodium Chloride (Sodium Chloride 0.9% 10 Ml Flush Syringe) 10 ml IV BID [facility] Last Admin: 06/07/21 09:58 Dose: 10 ml Documented by: Sodium Chloride (Sodium Chloride 0.9% 10 Ml Flush Syringe) 10 ml IV PRN PRN PRN Reason: LINE FLUSH Physical Examination - Physical Exam Narrative exam: Physical exam deferred to reduce risk of transmission of COVID-19. Please refer to primary team's note. - Constitutional Vitals: Vital Signs Temp Pulse Resp BP Pulse Ox 97.7 F 89 18 116/69 97 06/07/21 14:15 06/07/21 14:15 06/07/21 14:15 06/07/21 14:15 06/07/21 14:15 Temperature -Last 24 Hours Temperature 97.7 F Temperature 97.2 F Temperature 98.8 F Temperature 99.2 F Results - Labs CBC & Chem 7: 06/07/21 06:59 06/07/21 06:59 Labs: Abnormal lab results 06/07/21 06/07/21 06/07/21 Range/Units 06:59 06:59 10:55 Hgb 6.6 L (10.1-14.3) gm/dl Hct 24.0 L (30.3-42.9) % MCV 59 L (79-97) fl MCH 16 L (28-32) pg MCHC 28 L (30-34) % RDW 20.5 H (13.2-15.2) % Lymph % (Auto) 9.4 L (13.4-35.0) % Lymph # (Auto) 0.7 L (1.2-5.4) K/mm3 Seg Neutrophils % 84.5 H (40.0-70.0) % Sodium 136 L (137-145) mmol/L Carbon Dioxide 20 L (22-30) mmol/L Creatinine 0.5 L (0.6-1.2) mg/dL Glucose 261 H (65-100) mg/dL Lactate Dehydrogenase 210 H (91-180) units/L C-Reactive Protein 3.50 H (0.00-1.30) mg/dL Crossmatch See Detail Assessment and Plan Cultures: COVID-19 PCR pending A/P: 45-year-old female no known past medical history now with: #Acute hypoxic respiratory failure: Likely nasal cannula. Covid PUI. #Covid PUI: Awaiting PCR. Recs: -Follow-up Covid PCR. -Continue steroids. -Okay to start Remdesivir if Covid positive. -Stop antibiotics if procalcitonin low. -Anticoagulation per hospital protocol Thank you for the consult, we will continue to follow. Francisco Javier Mckeon MD [facility] ([facility]) O: [phone] F: [phone]
[2021-06-08] MEDS: IPRATROPIUM/ALBUTEROL SULFATE 3 ML AMPUL.NEB IH SCH ×3 (04:23→17:39)
[2021-06-08] MEDS: HEPARIN 5,000 UNIT/1 ML VIAL SUB-Q SCH ×3 (05:12→22:50)
[2021-06-08 06:43] LABS: Mean Corpuscular HGB Conc 28 % (30-34); Platelet Count 347 K/mm3 (140-440); Red Blood Count 4.56 M/mm3 (3.65-5.03)
[2021-06-08 06:50] LABS: Hematocrit 28.1 % (30.3-42.9); Hemoglobin 7.9 gm/dl (10.1-14.3); Mean Corpuscular Volume 62 fl (79-97)
[2021-06-08 06:51] LABS: Red Cell Distribution Width 25.3 % (13.2-15.2)
[2021-06-08 07:09] LABS: Blood Urea Nitrogen 18 mg/dL (7-17); Calcium 9.1 mg/dL (8.4-10.2); Hemolysis Index 0; Iron 12 ug/dL (37-170); Total Iron Binding Capacity 367 mcg/dL (250-450)
[2021-06-08 07:11] LABS: BUN/Creatinine Ratio 36
[2021-06-08 07:46] LABS: Anisocytosis 2+; Band Neutrophils # (Manual) 0.1 K/mm3; Total Cells Counted 100
[2021-06-08 07:47] LABS: Hypochromasia 3+; Large Platelets Few; Platelet Estimate Consistent w Auto
[2021-06-08] MEDS: FAMOTIDINE 20 MG TAB PO SCH ×2 (10:04→22:50)
[2021-06-08] MEDS: DEXAMETHASONE 4 MG TAB PO SCH ×2 (10:04→22:39)
--- NOTE | 2021-06-08 11:14 | Progress Note ---
Assessment and Plan Assessment and plan: #Acute hypoxic respiratory failure #COVID-19 pneumonia -Currently on 2 L nasal cannula, will wean as tolerated -Continue remdesivir -Dexamethasone x10 days -Continue empiric antibiotics for CAP -Procalcitonin pending, if low will discontinue antibiotics -patient encouraged to prone as able -ID following, assistance appreciated #Microcytic anemia -s/p 1 packed red blood cells -will transfuse for hemoglobin less than 7 #Hyperglycemia -will start low-dose sliding scale insulin -Hemoglobin A1c ordered, no prior history of diabetes Disposition Plan: Continue medical management History Interval history: No acute vents overnight. Patient Tongan-speaking, communicated via translation. Complains of mild pleuritic chest pain without productive cough. Hospitalist Physical - Physical exam Narrative exam: GENERAL: Well-developed well-nourished. In no acute distress. HEENT: NC @ 2LPM CHEST/LUNGS: Decrease breath sound bilaterally HEART/CARDIOVASCULAR: RRR. No murmur, rubs or gallops appreciated. ABDOMEN: +BS. NT/ND. NEURO: No focal motor deficit. Follows all commands. MUSCULOSKELETAL: No joint effusion EXTREMITIES: No cyanosis, clubbing or edema. PSYCH: Cooperative. - Constitutional Vitals: Temp Pulse Resp BP Pulse Ox 98.1 F 70 18 121/61 93 06/07/21 22:35 06/07/21 22:35 06/07/21 23:00 06/07/21 22:35 06/07/21 23:00 General appearance: Present: no acute distress, well-nourished Results - Labs CBC & Chem 7: 06/08/21 06:02 06/08/21 06:02 Labs: Laboratory Last Values WBC 7.1 K/mm3 (4.5-11.0) 06/08/21 06:02 RBC 4.56 M/mm3 (3.65-5.03) 06/08/21 06:02 Hgb 7.9 gm/dl (10.1-14.3) L 06/08/21 06:02 Hct 28.1 % (30.3-42.9) L 06/08/21 06:02 MCV 62 fl (79-97) L 06/08/21 06:02 MCH 17 pg (28-32) L 06/08/21 06:02 MCHC 28 % (30-34) L 06/08/21 06:02 RDW 25.3 % (13.2-15.2) H 06/08/21 06:02 Plt Count 347 K/mm3 (140-440) 06/08/21 06:02 Lymph % (Auto) 9.4 % (13.4-35.0) L 06/07/21 06:59 [place] % (Auto) 5.9 % (0.0-7.3) 06/07/21 06:59 Eos % (Auto) 0.0 % (0.0-4.3) 06/07/21 06:59 Baso % (Auto) 0.2 % (0.0-1.8) 06/07/21 06:59 Lymph # (Auto) 0.7 K/mm3 (1.2-5.4) L 06/07/21 06:59 [place] # (Auto) 0.4 K/mm3 (0.0-0.8) 06/07/21 06:59 Eos # (Auto) 0.0 K/mm3 (0.0-0.4) 06/07/21 06:59 Baso # (Auto) 0.0 K/mm3 (0.0-0.1) 06/07/21 06:59 Add Manual Diff Complete 06/08/21 06:02 Total Counted 100 06/08/21 06:02 Seg Neutrophils % 84.5 % (40.0-70.0) H 06/07/21 06:59 Seg Neuts % (Manual) 93.0 % (40.0-70.0) H 06/08/21 06:02 Band Neutrophils % 1.0 % 06/08/21 06:02 Lymphocytes % (Manual) 4.0 % (13.4-35.0) L 06/08/21 06:02 Monocytes % (Manual) 2.0 % (0.0-7.3) 06/08/21 06:02 Nucleated RBC % Not Reportable 06/08/21 06:02 Seg Neutrophils # 6.2 K/mm3 (1.8-7.7) 06/07/21 06:59 Seg Neutrophils # Man 6.6 K/mm3 (1.8-7.7) 06/08/21 06:02 Band Neutrophils # 0.1 K/mm3 06/08/21 06:02 Lymphocytes # (Manual) 0.3 K/mm3 (1.2-5.4) L 06/08/21 06:02 Abs React Lymphs (Man) 0.0 K/mm3 06/08/21 06:02 Monocytes # (Manual) 0.1 K/mm3 (0.0-0.8) 06/08/21 06:02 Eosinophils # (Manual) 0.0 K/mm3 (0.0-0.4) 06/08/21 06:02 Basophils # (Manual) 0.0 K/mm3 (0.0-0.1) 06/08/21 06:02 Metamyelocytes # 0.0 K/mm3 06/08/21 06:02 Myelocytes # 0.0 K/mm3 06/08/21 06:02 Promyelocytes # 0.0 K/mm3 06/08/21 06:02 Blast Cells # 0.0 K/mm3 06/08/21 06:02 WBC Morphology Not Reportable 06/08/21 06:02 Hypersegmented Neuts Not Reportable 06/08/21 06:02 Hyposegmented Neuts Not Reportable 06/08/21 06:02 Hypogranular Neuts Not Reportable 06/08/21 06:02 Smudge Cells Not Reportable 06/08/21 06:02 Toxic Granulation Not Reportable 06/08/21 06:02 Toxic Vacuolation Not Reportable 06/08/21 06:02 Dohle Bodies Not Reportable 06/08/21 06:02 Pelger-Huet Anomaly Not Reportable 06/08/21 06:02 Llia Rods Not Reportable 06/08/21 06:02 Platelet Estimate Consistent w auto 06/08/21 06:02 Clumped Platelets Not Reportable 06/08/21 06:02 Plt Clumps, EDTA Not Reportable 06/08/21 06:02 Large Platelets Few 06/08/21 06:02 Giant Platelets Not Reportable 06/08/21 06:02 Platelet Satelliting Not Reportable 06/08/21 06:02 Plt Morphology Comment Not Reportable 06/08/21 06:02 RBC Morphology Not Reportable 06/08/21 06:02 Dimorphic RBCs Not Reportable 06/08/21 06:02 Polychromasia Not Reportable 06/08/21 06:02 Hypochromasia 3+ 06/08/21 06:02 Poikilocytosis Not Reportable 06/08/21 06:02 Anisocytosis 2+ 06/08/21 06:02 Microcytosis 2+ 06/08/21 06:02 Macrocytosis Not Reportable 06/08/21 06:02 Spherocytes Not Reportable 06/08/21 06:02 Pappenheimer Bodies Not Reportable 06/08/21 06:02 Sickle Cells Not Reportable 06/08/21 06:02 Target Cells Not Reportable 06/08/21 06:02 Tear Drop Cells Not Reportable 06/08/21 06:02 Ovalocytes Not Reportable 06/08/21 06:02 Helmet Cells Not Reportable 06/08/21 06:02 Pop-[place] Bodies Not Reportable 06/08/21 06:02 [place] Rings Not Reportable 06/08/21 06:02 [place] Cells Not Reportable 06/08/21 06:02 Bite Cells Not Reportable 06/08/21 06:02 Crenated Cell Not Reportable 06/08/21 06:02 Elliptocytes Not Reportable 06/08/21 06:02 Acanthocytes (Spur) Not Reportable 06/08/21 06:02 Rouleaux Not Reportable 06/08/21 06:02 Hemoglobin C Crystals Not Reportable 06/08/21 06:02 Schistocytes Not Reportable 06/08/21 06:02 Malaria parasites Not Reportable 06/08/21 06:02 Xander Bodies Not Reportable 06/08/21 06:02 Hem Pathologist Commnt No 06/08/21 06:02 D-Dimer 211.76 ng/mlDDU (0-234) 06/07/21 10:52 Sodium 134 mmol/L (137-145) L 06/08/21 06:02 Potassium 4.6 mmol/L (3.6-5.0) 06/08/21 06:02 Chloride 100.7 mmol/L (98-107) 06/08/21 06:02 Carbon Dioxide 18 mmol/L (22-30) L 06/08/21 06:02 Anion Gap 20 mmol/L 06/08/21 06:02 BUN 18 mg/dL (7-17) H 06/08/21 06:02 Creatinine 0.5 mg/dL (0.6-1.2) L 06/08/21 06:02 Estimated GFR > 60 ml/min 06/08/21 06:02 BUN/Creatinine Ratio 36 % 06/08/21 06:02 Glucose 332 mg/dL (65-100) H 06/08/21 06:02 Calcium 9.1 mg/dL (8.4-10.2) 06/08/21 06:02 Iron 12 ug/dL (37-170) L 06/08/21 06:02 TIBC 367 mcg/dL (250-450) 06/08/21 06:02 Ferritin 19.2 ng/mL (10.0-200.0) 06/07/21 06:59 Total Bilirubin 0.40 mg/dL (0.1-1.2) 06/05/21 17:51 AST 56 units/L (5-40) H 06/05/21 17:51 ALT 63 units/L (7-56) H 06/05/21 17:51 Alkaline Phosphatase 79 units/L (35-129) 06/05/21 17:51 Lactate Dehydrogenase 210 units/L (91-180) H 06/07/21 06:59 C-Reactive Protein 3.50 mg/dL (0.00-1.30) H 06/07/21 06:59 Total Protein 7.9 g/dL (6.3-8.2) 06/05/21 17:51 Albumin 3.8 g/dL (3.9-5) L 06/05/21 17:51 Albumin/Globulin Ratio 0.9 % 06/05/21 17:51 HCG, Quant < 2 mIU/mL (0-4) 06/05/21 17:51 Coronavirus (PCR) Positive (Negative) A 06/07/21 Unknown Blood Type O POSITIVE 06/07/21 10:55 Antibody Screen Negative 06/07/21 10:55 Crossmatch See Detail 06/07/21 10:55 Johnson/IV: Voiding Method Toilet Active Medications - Current Medications Current Medications: Generic Name Dose Route Start Last Admin Trade Name Freq PRN Reason Stop Dose Admin Acetaminophen 650 mg 06/05/21 21:58 06/06/21 11:50 Acetaminophen 325 Mg Tab PO 650 mg Q4H PRN Administration Pain MILD(1-3)/Fever >100.5/TRAN Albuterol 2.5 mg 06/05/21 21:58 Albuterol 2.5 Mg/3 Ml Nebu IH Q4HRT PRN Shortness Of Breath Albuterol/Ipratropium 1 ampul 06/06/21 02:00 06/08/21 04:23 Ipratropium/Albuterol Sulfate 3 Ml Ampul.Neb IH Not Given Q6HRT VERENICE Dexamethasone 8 mg 06/06/21 10:00 06/08/21 10:04 Dexamethasone 4 Mg Tab PO 06/10/21 10:01 8 mg Q12HR VERENICE Administration Famotidine 20 mg 06/05/21 22:00 06/08/21 10:04 Famotidine 20 Mg Tab PO 20 mg BID VERENICE Administration Guaifenesin 200 mg 06/07/21 01:19 06/07/21 01:34 Guaifenesin 100 Mg/5 Ml Oral Liqd PO 200 mg Q6HR PRN Administration Cough Heparin Sodium (Porcine) 5,000 unit 06/05/21 22:00 06/08/21 05:12 Heparin 5,000 Unit/1 Ml Vial SUB-Q 5,000 unit Q8HR VERENICE Administration Hydromorphone HCl 0.5 mg 06/05/21 21:58 Hydromorphone 1 Mg/1 Ml Inj IV Q3H PRN Pain , Severe (7-10) Ceftriaxone Sodium 2 gm in 100 mls @ 200 mls/hr 06/05/21 22:00 06/07/21 22:29 Rocephin/Ns 2 Gm/100 Ml IV 06/09/21 22:29 200 mls/hr Q24H VERENICE Administration Protocol Morphine Sulfate 2 mg 06/05/21 21:58 Morphine 2 Mg/1 Ml Inj IV Q4H PRN Pain, Moderate (4-6) Ondansetron HCl 4 mg 06/05/21 21:58 Ondansetron 4 Mg/2 Ml Inj IV Q8H PRN Nausea And Vomiting Sodium Chloride 10 ml 06/05/21 22:00 06/08/21 10:04 Sodium Chloride 0.9% 10 Ml Flush Syringe IV 10 ml BID VERENICE Administration Sodium Chloride 10 ml 06/05/21 21:58 Sodium Chloride 0.9% 10 Ml Flush Syringe IV PRN PRN LINE FLUSH
--- NOTE | 2021-06-08 14:39 | Progress Note ---
Assessment and Plan Cultures: COVID-19 PCR positive. A/P: 45-year-old female no known past medical history now with: #Acute hypoxic respiratory failure: 2 L nasal cannula. Secondary COVID-19 #Covid pneumonia Recs: -Continue steroids. -Started Remdesivir x5 days. If improved, no need to stay to complete entire course. -Stop antibiotics if procalcitonin low. -Anticoagulation per hospital protocol -Proning as able Thank you for the consult, we will sign off. Please call questions. Francisco Javier Mckeon MD [facility] ([facility]) O: [phone] F: [phone] Subjective Date of service: 06/08/21 Interval history: Afebrile, normal white count. Covid positive. On 2 L nasal cannula. Objective - Exam Narrative Exam: Physical exam deferred to reduce risk of transmission of COVID-19. Please refer to primary team's note. - Constitutional Vitals: Vital Signs Temp Pulse Resp BP Pulse Ox 98.1 F 70 18 121/61 97 06/07/21 22:35 06/07/21 22:35 06/07/21 23:00 06/07/21 22:35 06/08/21 13:49 Temperature -Last 24 Hours Temperature 98.1 F Temperature 98.6 F Temperature 99.4 F Temperature 98.0 F Temperature 99.4 F Temperature 99.3 F - Labs CBC & Chem 7: 06/08/21 06:02 06/08/21 06:02 Labs: Abnormal lab results 06/07/21 06/07/21 06/08/21 Range/Units 10:55 Unknown 06:02 Hgb 7.9 L (10.1-14.3) gm/dl Hct 28.1 L (30.3-42.9) % MCV 62 L (79-97) fl MCH 17 L (28-32) pg MCHC 28 L (30-34) % RDW 25.3 H (13.2-15.2) % Seg Neuts % (Manual) 93.0 H (40.0-70.0) % Lymphocytes % (Manual) 4.0 L (13.4-35.0) % Lymphocytes # (Manual) 0.3 L (1.2-5.4) K/mm3 Sodium (137-145) mmol/L Carbon Dioxide (22-30) mmol/L BUN (7-17) mg/dL Creatinine (0.6-1.2) mg/dL Glucose (65-100) mg/dL Iron (37-170) ug/dL Coronavirus (PCR) Positive A (Negative) Crossmatch See Detail 06/08/21 Range/Units 06:02 Hgb (10.1-14.3) gm/dl Hct (30.3-42.9) % MCV (79-97) fl MCH (28-32) pg MCHC (30-34) % RDW (13.2-15.2) % Seg Neuts % (Manual) (40.0-70.0) % Lymphocytes % (Manual) (13.4-35.0) % Lymphocytes # (Manual) (1.2-5.4) K/mm3 Sodium 134 L (137-145) mmol/L Carbon Dioxide 18 L (22-30) mmol/L BUN 18 H (7-17) mg/dL Creatinine 0.5 L (0.6-1.2) mg/dL Glucose 332 H (65-100) mg/dL Iron 12 L (37-170) ug/dL Coronavirus (PCR) (Negative) Crossmatch
[2021-06-08] MEDS ORDERED: REMDESIVIR 200 MG in SODIUM CHLORIDE 0.9% 250ML 250 ML IV ONE (16:00)
[2021-06-08] MEDS ORDERED: DEXTROSE 50% IN WATER (25GM) 50 ML SYRINGE IV PRN (16:30)
[2021-06-08] MEDS: SODIUM CHLORIDE 0.9% 50 ML IVPB IV SCH (17:17)
[2021-06-08] MEDS ORDERED: ALBUTEROL 2.5 MG/3 ML NEBU IH PRN (17:47)
[2021-06-08] MEDS: INSULIN LISPRO 100 UNIT/ML SUB-Q SCH ×2 (18:18→22:48)
[2021-06-08] MEDS: cefTRIAXone/NS 2 GM/100 ML 2 GM/100 ML BAG IV SCH (22:39)
[2021-06-09 06:20] LABS: Mean Corpuscular HGB Conc 29 % (30-34); Platelet Count 349 K/mm3 (140-440); Red Blood Count 4.53 M/mm3 (3.65-5.03)
[2021-06-09 06:25] LABS: Hematocrit 27.8 % (30.3-42.9); Mean Corpuscular Volume 61 fl (79-97); Red Cell Distribution Width 25.2 % (13.2-15.2)
[2021-06-09 06:39] LABS: Alanine Aminotransferase 42 units/L (7-56); Albumin 3.5 g/dL (3.9-5); Blood Urea Nitrogen 21 mg/dL (7-17); Hemolysis Index 0
[2021-06-09] MEDS: HEPARIN 5,000 UNIT/1 ML VIAL SUB-Q SCH ×3 (06:50→23:05)
[2021-06-09 07:10] LABS: BUN/Creatinine Ratio 42
--- NOTE | 2021-06-09 08:12 | Progress Note ---
Assessment and Plan Assessment and plan: #Acute hypoxic respiratory failure #COVID-19 pneumonia -Currently saturating greater than 95% on room air -Continue remdesivir -Dexamethasone x10 days total -will discontinue abx -patient encouraged to prone as able -ID following, assistance appreciated #Microcytic anemia -s/p 1 packed red blood cells -will transfuse for hemoglobin less than 7 #Hyperglycemia #New onset-Type II Diabetes -A1C 7.7% -patient not taking any medications at home -SSI increased to high-dose -will likely need metformin at discharge Disposition Plan: Continue medical management, home in a.m. History Interval history: No acute vents overnight. Patient Martiniquais-speaking, communicated via translation. Reports improvement in shortness of breath and cough. No longer requiring supplemental O2. Hospitalist Physical - Physical exam Narrative exam: GENERAL: Well-developed well-nourished. In no acute distress. HEENT: Normocephalic, atraumatic. CHEST/LUNGS: Improved air movement bilaterally HEART/CARDIOVASCULAR: RRR. No murmur, rubs or gallops appreciated. ABDOMEN: +BS. NT/ND. NEURO: No focal motor deficit. Follows all commands. PSYCH: Cooperative. - Constitutional Vitals: Temp Pulse Resp BP Pulse Ox 98.2 F 50 L 18 124/64 100 06/09/21 05:03 06/09/21 05:03 06/09/21 05:03 06/09/21 05:03 06/09/21 05:03 General appearance: Present: no acute distress, well-nourished Results - Labs CBC & Chem 7: 06/09/21 04:00 06/09/21 05:00 Labs: Laboratory Last Values WBC 5.5 K/mm3 (4.5-11.0) 06/09/21 04:00 RBC 4.53 M/mm3 (3.65-5.03) 06/09/21 04:00 Hgb 8.0 gm/dl (10.1-14.3) L 06/09/21 04:00 Hct 27.8 % (30.3-42.9) L 06/09/21 04:00 MCV 61 fl (79-97) L 06/09/21 04:00 MCH 18 pg (28-32) L 06/09/21 04:00 MCHC 29 % (30-34) L 06/09/21 04:00 RDW 25.2 % (13.2-15.2) H 06/09/21 04:00 Plt Count 349 K/mm3 (140-440) 06/09/21 04:00 Lymph % (Auto) 9.4 % (13.4-35.0) L 06/07/21 06:59 [place] % (Auto) 5.9 % (0.0-7.3) 06/07/21 06:59 Eos % (Auto) 0.0 % (0.0-4.3) 06/07/21 06:59 Baso % (Auto) 0.2 % (0.0-1.8) 06/07/21 06:59 Lymph # (Auto) 0.7 K/mm3 (1.2-5.4) L 06/07/21 06:59 [place] # (Auto) 0.4 K/mm3 (0.0-0.8) 06/07/21 06:59 Eos # (Auto) 0.0 K/mm3 (0.0-0.4) 06/07/21 06:59 Baso # (Auto) 0.0 K/mm3 (0.0-0.1) 06/07/21 06:59 Add Manual Diff Complete 06/08/21 06:02 Total Counted 100 06/08/21 06:02 Seg Neutrophils % 84.5 % (40.0-70.0) H 06/07/21 06:59 Seg Neuts % (Manual) 93.0 % (40.0-70.0) H 06/08/21 06:02 Band Neutrophils % 1.0 % 06/08/21 06:02 Lymphocytes % (Manual) 4.0 % (13.4-35.0) L 06/08/21 06:02 Monocytes % (Manual) 2.0 % (0.0-7.3) 06/08/21 06:02 Nucleated RBC % Not Reportable 06/08/21 06:02 Seg Neutrophils # 6.2 K/mm3 (1.8-7.7) 06/07/21 06:59 Seg Neutrophils # Man 6.6 K/mm3 (1.8-7.7) 06/08/21 06:02 Band Neutrophils # 0.1 K/mm3 06/08/21 06:02 Lymphocytes # (Manual) 0.3 K/mm3 (1.2-5.4) L 06/08/21 06:02 Abs React Lymphs (Man) 0.0 K/mm3 06/08/21 06:02 Monocytes # (Manual) 0.1 K/mm3 (0.0-0.8) 06/08/21 06:02 Eosinophils # (Manual) 0.0 K/mm3 (0.0-0.4) 06/08/21 06:02 Basophils # (Manual) 0.0 K/mm3 (0.0-0.1) 06/08/21 06:02 Metamyelocytes # 0.0 K/mm3 06/08/21 06:02 Myelocytes # 0.0 K/mm3 06/08/21 06:02 Promyelocytes # 0.0 K/mm3 06/08/21 06:02 Blast Cells # 0.0 K/mm3 06/08/21 06:02 WBC Morphology Not Reportable 06/08/21 06:02 Hypersegmented Neuts Not Reportable 06/08/21 06:02 Hyposegmented Neuts Not Reportable 06/08/21 06:02 Hypogranular Neuts Not Reportable 06/08/21 06:02 Smudge Cells Not Reportable 06/08/21 06:02 Toxic Granulation Not Reportable 06/08/21 06:02 Toxic Vacuolation Not Reportable 06/08/21 06:02 Dohle Bodies Not Reportable 06/08/21 06:02 Pelger-Huet Anomaly Not Reportable 06/08/21 06:02 Lila Rods Not Reportable 06/08/21 06:02 Platelet Estimate Consistent w auto 06/08/21 06:02 Clumped Platelets Not Reportable 06/08/21 06:02 Plt Clumps, EDTA Not Reportable 06/08/21 06:02 Large Platelets Few 06/08/21 06:02 Giant Platelets Not Reportable 06/08/21 06:02 Platelet Satelliting Not Reportable 06/08/21 06:02 Plt Morphology Comment Not Reportable 06/08/21 06:02 RBC Morphology Not Reportable 06/08/21 06:02 Dimorphic RBCs Not Reportable 06/08/21 06:02 Polychromasia Not Reportable 06/08/21 06:02 Hypochromasia 3+ 06/08/21 06:02 Poikilocytosis Not Reportable 06/08/21 06:02 Anisocytosis 2+ 06/08/21 06:02 Microcytosis 2+ 06/08/21 06:02 Macrocytosis Not Reportable 06/08/21 06:02 Spherocytes Not Reportable 06/08/21 06:02 Pappenheimer Bodies Not Reportable 06/08/21 06:02 Sickle Cells Not Reportable 06/08/21 06:02 Target Cells Not Reportable 06/08/21 06:02 Tear Drop Cells Not Reportable 06/08/21 06:02 Ovalocytes Not Reportable 06/08/21 06:02 Helmet Cells Not Reportable 06/08/21 06:02 Pop-Takilma Bodies Not Reportable 06/08/21 06:02 [place] Rings Not Reportable 06/08/21 06:02 Rashaun Cells Not Reportable 06/08/21 06:02 Bite Cells Not Reportable 06/08/21 06:02 Crenated Cell Not Reportable 06/08/21 06:02 Elliptocytes Not Reportable 06/08/21 06:02 Acanthocytes (Spur) Not Reportable 06/08/21 06:02 Rouleaux Not Reportable 06/08/21 06:02 Hemoglobin C Crystals Not Reportable 06/08/21 06:02 Schistocytes Not Reportable 06/08/21 06:02 Malaria parasites Not Reportable 06/08/21 06:02 Xander Bodies Not Reportable 06/08/21 06:02 Hem Pathologist Commnt No 06/08/21 06:02 D-Dimer 211.76 ng/mlDDU (0-234) 06/07/21 10:52 Sodium 138 mmol/L (137-145) 06/09/21 05:00 Potassium 4.2 mmol/L (3.6-5.0) 06/09/21 05:00 Chloride 103.9 mmol/L (98-107) 06/09/21 05:00 Carbon Dioxide 20 mmol/L (22-30) L 06/09/21 05:00 Anion Gap 18 mmol/L 06/09/21 05:00 BUN 21 mg/dL (7-17) H 06/09/21 05:00 Creatinine 0.5 mg/dL (0.6-1.2) L 06/09/21 05:00 Estimated GFR > 60 ml/min 06/09/21 05:00 BUN/Creatinine Ratio 42 % 06/09/21 05:00 Glucose 285 mg/dL (65-100) H 06/09/21 05:00 POC Glucose 321 mg/dL (70-105) H 06/08/21 21:07 Hemoglobin A1c 7.7 % (4-6) H 06/09/21 04:00 Calcium 9.0 mg/dL (8.4-10.2) 06/09/21 05:00 Iron 12 ug/dL (37-170) L 06/08/21 06:02 TIBC 367 mcg/dL (250-450) 06/08/21 06:02 Ferritin 19.2 ng/mL (10.0-200.0) 06/07/21 06:59 Total Bilirubin 0.20 mg/dL (0.1-1.2) 06/09/21 05:00 AST 27 units/L (5-40) 06/09/21 05:00 ALT 42 units/L (7-56) 06/09/21 05:00 Alkaline Phosphatase 67 units/L (35-129) 06/09/21 05:00 Lactate Dehydrogenase 210 units/L (91-180) H 06/07/21 06:59 C-Reactive Protein 3.50 mg/dL (0.00-1.30) H 06/07/21 06:59 Total Protein 7.0 g/dL (6.3-8.2) 06/09/21 05:00 Albumin 3.5 g/dL (3.9-5) L 06/09/21 05:00 Albumin/Globulin Ratio 1.0 % 06/09/21 05:00 HCG, Quant < 2 mIU/mL (0-4) 06/05/21 17:51 Coronavirus (PCR) Positive (Negative) A 06/07/21 Unknown Blood Type O POSITIVE 06/07/21 10:55 Antibody Screen Negative 06/07/21 10:55 Crossmatch See Detail 06/07/21 10:55 Johnson/IV: Voiding Method Toilet Active Medications - Current Medications Current Medications: Generic Name Dose Route Start Last Admin Trade Name Freq PRN Reason Stop Dose Admin Acetaminophen 650 mg 06/05/21 21:58 06/06/21 11:50 Acetaminophen 325 Mg Tab PO 650 mg Q4H PRN Administration Pain MILD(1-3)/Fever >100.5/TRAN Albuterol 2.5 mg 06/08/21 17:47 Albuterol 2.5 Mg/3 Ml Nebu IH Q4HRT PRN Shortness Of Breath Dexamethasone 8 mg 06/06/21 10:00 06/08/21 22:39 Dexamethasone 4 Mg Tab PO 06/10/21 10:01 8 mg Q12HR VERENICE Administration Dextrose 50 ml 06/08/21 16:30 Dextrose 50% In Water (25gm) 50 Ml Syringe IV Q30MIN PRN Hypoglycemia Protocol Famotidine 20 mg 06/05/21 22:00 06/08/21 22:50 Famotidine 20 Mg Tab PO 20 mg BID VERENICE Administration Guaifenesin 200 mg 06/07/21 01:19 06/07/21 01:34 Guaifenesin 100 Mg/5 Ml Oral Liqd PO 200 mg Q6HR PRN Administration Cough Heparin Sodium (Porcine) 5,000 unit 06/05/21 22:00 06/09/21 06:50 Heparin 5,000 Unit/1 Ml Vial SUB-Q 5,000 unit Q8HR VERENICE Administration Hydromorphone HCl 0.5 mg 06/05/21 21:58 Hydromorphone 1 Mg/1 Ml Inj IV Q3H PRN Pain , Severe (7-10) Ceftriaxone Sodium 2 gm in 100 mls @ 200 mls/hr 06/05/21 22:00 06/08/21 22:39 Rocephin/Ns 2 Gm/100 Ml IV 06/09/21 22:29 200 mls/hr Q24H VERENICE Administration Protocol REMDESIVIR 100 mg/ Sodium 250 mls @ 500 mls/hr 06/09/21 21:00 Chloride IV 06/12/21 21:29 Q24HR@2100 [facility] Insulin Human Lispro 0 unit 06/08/21 16:30 06/08/21 22:48 Insulin Lispro 100 Unit/Ml SUB-Q 4 unit ACHS [facility] Administration Protocol Morphine Sulfate 2 mg 06/05/21 21:58 Morphine 2 Mg/1 Ml Inj IV Q4H PRN Pain, Moderate (4-6) Ondansetron HCl 4 mg 06/05/21 21:58 Ondansetron 4 Mg/2 Ml Inj IV Q8H PRN Nausea And Vomiting Sodium Chloride 10 ml 06/05/21 22:00 06/08/21 22:49 Sodium Chloride 0.9% 10 Ml Flush Syringe IV 10 ml BID VERENICE Administration Sodium Chloride 10 ml 06/05/21 21:58 Sodium Chloride 0.9% 10 Ml Flush Syringe IV PRN PRN LINE FLUSH Sodium Chloride 50 ml 06/08/21 16:00 06/08/21 17:17 Sodium Chloride 0.9% 50 Ml Ivpb IV 06/12/21 21:01 50 ml Q24HR@2100 VERENICE Administration
[2021-06-09] MEDS: FAMOTIDINE 20 MG TAB PO SCH ×2 (10:19→23:05)
[2021-06-09] MEDS: DEXAMETHASONE 4 MG TAB PO SCH ×2 (10:19→23:05)
[2021-06-09] MEDS: INSULIN LISPRO 100 UNIT/ML SUB-Q SCH ×4 (10:22→23:05)
[2021-06-09] MEDS ORDERED: REMDESIVIR 100 MG in SODIUM CHLORIDE 0.9% 250ML 250 ML IV SCH (21:00)
[2021-06-09] MEDS: SODIUM CHLORIDE 0.9% 50 ML IVPB IV SCH (23:04)
[2021-06-09] MEDS: guaiFENesin 100 MG/5 ML ORAL LIQD PO PRN (23:06)
[2021-06-09] MEDS: cefTRIAXone/NS 2 GM/100 ML 2 GM/100 ML BAG IV SCH (23:13)
[2021-06-10] MEDS: HEPARIN 5,000 UNIT/1 ML VIAL SUB-Q SCH (05:12)
[2021-06-10 06:36] LABS: Alanine Aminotransferase 63 units/L (7-56); Albumin 3.5 g/dL (3.9-5); Blood Urea Nitrogen 16 mg/dL (7-17); Hemolysis Index 0
[2021-06-10 06:39] LABS: BUN/Creatinine Ratio 40
--- NOTE | 2021-06-10 07:51 | Discharge Summary ---
Providers - Providers Date of Admission: 06/05/21 21:58 Attending physician: RUKHSANA SANTIAGO MD 06/05/21 21:58 Consult to Physician [CONS] Routine Comment: Consulting Provider: TAI RODRIGUEZ Physician Instructions: Reason For Exam: covid Primary care physician: MYKE DICKINSON MD Hospitalization Condition: Stable Disposition: 30 STILL A PATIENT Exam - Constitutional Vitals: Temp Pulse Resp BP Pulse Ox 97.8 F 45 L 16 135/61 97 06/10/21 05:05 06/10/21 05:05 06/10/21 05:05 06/10/21 05:05 06/10/21 05:05 Plan Care Plan Goals: Siga las pautas de los CDC para el aislamiento de la infeccin por Covid 19. Debe ponerse en cuarentena siempre que tenga sntomas lindsay fiebre, dificultad para respirar, tos, dolor de garganta, etc. Si no tiene ningn sntoma despus de la cuarentena por 5 paulino en total, debe usar mscaras marce los siguientes 5 paulino cuando est en contacto con otras personas o en espacios pblicos. Puga prueba de COVID luiz positivo el 3 enero. Puga cuarentena terminar el ero si ya no tiene sntomas. Turner los medicamentos que le hemos recetado hasta que se terminen. Si tiene dificultad para respirar que empeora, regrese al hospital. Segn puga trabajo de laboratorio, tiene diabetes tipo 2. Debe controlar wendi niveles de azcar en la marshal al menos shobha vez al da en diferentes momentos y registrar los nmeros. Visite a un mdico de atencin primaria dentro de las 2 semanas. Comenzar a lili un medicamento llamado metformina diariamente con las comidas. Lleve las lecturas de azcar en la marshal a puga alonzo con el mdico de atencin primaria. Follow up with: PRIMARY MD TEENA [Primary Care Provider] - 3-5 Days Prescriptions: dexAMETHasone [Dexamethasone] 6 mg PO DAILY #5 metFORMIN XR [Glucophage XR] 500 mg PO QDAY 30 Days #30 tab
[2021-06-10] MEDS ORDERED: DEXAMETHASONE 4 MG TAB PO SCH (10:00)
[2021-06-10] MEDS: FAMOTIDINE 20 MG TAB PO SCH (10:28)
[2021-06-10] MEDS: INSULIN LISPRO 100 UNIT/ML SUB-Q SCH ×2 (10:28→12:02)
[2021-06-10 11:04] VITALS: BP 96/50
== END 2021-06-10 13:37 | disposition home or self-care (01) | DRG 177 ==
LOC: EDSEX → ED 12:58 → 3A 21:58
PROVIDERS: ADMIT Hospitalist; ATTEND Student in an Organized Health Care Education/Training Program
PROC: XW033E5 Introduction of Remdesivir Anti-infective into Peripheral Vein, Percutaneous Approach, New Technology Group 5 (ICD-10-PCS; principal; 2021-06-08)
DX: U07.1 COVID-19 (principal); J12.82 Pneumonia due to coronavirus disease 2019; J96.01 Acute respiratory failure with hypoxia; E83.51 Hypocalcemia; D50.9 Iron deficiency anemia, unspecified; Z82.49 Family history of ischemic heart disease and other diseases of the circulatory system
CPT/HCPCS: 36415; 71046; 80048; 80053; 82728; 82962; 83036; 83550; 83615; 84702; 85007; 85025; 85027; 85379; 86140; 86850; 86900; 86901; 86920; 94640; 94760; 99285; G0378; Q0162; Q9967; J0456; J0610; J0696; J1100; J1644; J1815; J7030; J7040; J7050; J8540; P9016; U0003